=== PATIENT | female | born 1980 | race African-American/Black ===

== ENCOUNTER 2018-09-19 07:42 | Emergency (ER) | payer OTHER ==
[~2018-09-19] VITALS: Ht 172.7 cm; Wt 97.5 kg
[2018-09-19] MEDS ORDERED: ALBUTEROL2.5 MG/31 INH (07:48)
[2018-09-19] MEDS ORDERED: PREDNISONE 20 M20 M1 PO (07:56)
[2018-09-19] MEDS ORDERED: VENTOLIN HFA 1818 GM INH (07:56)
[2018-09-19 08:28] VITALS: BP 129/69
== END 2018-09-19 08:29 | disposition home or self-care (01) ==
LOC: M.ERS 07:42
DX: J45.901 Unspecified asthma with (acute) exacerbation (principal); Z90.49 Acquired absence of other specified parts of digestive tract

== ENCOUNTER 2021-03-28 20:58 | Emergency (ER) | payer OTHER ==
[~2021-03-28] VITALS: Ht 172.7 cm; Wt 122.5 kg
[~2021-03-28 20:58] MED LIST: ALBUTEROL2.5 MG/31 INH; PREDNISONE 20 M20 M1 PO; VENTOLIN HFA 1818 GM INH
[2021-03-28 21:37] LABS: ABSOLUTE BASOPHILS 0.1 thou/uL (0.0-0.2); ABSOLUTE EOSINOPHILS 0.4 thou/uL (0.0-0.7); ABSOLUTE LYMPHOCYTES 2.2 thou/uL (0.8-5.3); ABSOLUTE MONOCYTES 0.6 thou/uL (0.0-1.2); ABSOLUTE NEUTROPHILS 5.9 thou/uL (1.6-8.1); BASOPHILS 1.2 %; EOSINOPHILS 4.8 %; HEMATOCRIT 32.4 % (37.0-47.0); HEMOGLOBIN 10.3 gm/dL (12.0-15.0); LYMPHOCYTES 23.5 %; MCH 24.5 pg (26.0-34.0); MCHC 31.9 g/dL (28.0-37.0); MCV 76.8 fL (80.0-100.0); MONOCYTES 6.8 %; MPV 10.2 fl. (7.2-11.1); NUCLEATED RBCS 0 /100WBC; PLATELET COUNT* 162 thou/uL (150-400); POLYS 63.7 %; RBC 4.21 mil/uL (4.20-5.00); RDW-CV 18.3 % (10.5-14.5); WBC 9.2 thou/uL (4.0-11.0)
[2021-03-28 21:45] LABS: CALCIUM 8.5 mg/dL (8.5-10.1); POTASSIUM 3.8 mmol/L (3.5-5.1)
[2021-03-28 21:56] LABS: TOTAL BILIRUBIN 0.1 mg/dL (<0.1-1.0); TOTAL PROTEIN 6.9 g/dL (6.4-8.2)
[2021-03-28] MEDS ORDERED: VENTOLIN HFA 1818 GM INH (22:35)
[2021-03-28] MEDS ORDERED: PREDNISONE 20 M20 MG PO (22:35)
[2021-03-28] MEDS ORDERED: ALBUTEROL2.5 MG/31 INH (22:35)
[2021-03-28] MEDS ORDERED: NEBULIZER MISCELL (22:35)
[2021-03-28 23:58] VITALS: BP 126/77
--- NOTE | 2021-03-29 06:20 | EKG ---
[place] [address] ELECTROCARDIOGRAM REPORT Name: JORGE AWTTS Room: [facility]#: [id number] Admission: 03/28/21 Attend Phys: Discharge: 03/28/21 Date of : 80 Date of Service: 03/28/212102 Report #: [id number] THIS REPORT FOR: //name// [facility] ED Test Date: 2021-03-28 Test Time: 21:03:45 Pat Name: JORGE WATTS Department: Room: Gender: F Pharmacy Order Entry Technician: : 1980 Requested By: Josefina Reyez Order Number: [id number] MD: Terrell Kearns Measurements Intervals [place] Rate: 85 P: 53 WI: 161 QRS: 71 QRSD: 90 T: 29 QT: 361 QTc: 430 Interpretive Statements Sinus rhythm No previous ECG available for comparison Electronically Signed On 03-29-2021 6:20:25 CDT by Terrell Kearns [email or web address] <ELECTRONICALLY SIGNED> By: Terrell Kearns MD, [facility] 03/29/21619 02 02 Terrell Kearns MD, FACC /EPI
== END 2021-03-28 23:58 | disposition home or self-care (01) ==
LOC: M.ERS 20:58
PROVIDERS: Nurse Practitioner Family
DX: J45.909 Unspecified asthma, uncomplicated (principal); Z20.822 Contact with and (suspected) exposure to COVID-19; I10 Essential (primary) hypertension; Z90.49 Acquired absence of other specified parts of digestive tract; Z79.899 Other long term (current) drug therapy; Z91.013 Allergy to seafood